=== PATIENT | female | born 1985 | race African-American/Black ===

== ENCOUNTER 2016-11-19 16:36 | Emergency (ER) | payer OTHER ==
[~2016-11-19] VITALS: Ht 157.5 cm; Wt 88.5 kg
[~2016-11-19 16:36] MED LIST: PREN1TAB49
[2016-11-19 16:38] VITALS: Ht 157.5 cm; Wt 88.5 kg
[2016-11-19] MEDS ORDERED: ONDANSETRON 4 MG INJ IV STA (17:46)
[2016-11-19] MEDS ORDERED: SOD CHLORIDE 0.9% 1,000 ML IV STA (17:46)
[2016-11-19] MEDS ORDERED: ACETAMINOPHEN 325 MG TAB PO STA (17:46)
[2016-11-19 18:08] LABS: URINE BLOOD (Dip) POC Negative (NEGATIVE)
[2016-11-19 18:39] LABS: ADD SCAN DIFF NO
[2016-11-19 18:43] LABS: BASOPHILS % 0.2 % (0.0-2.0); EOSINOPHILS # 0.1 10^3/ul (0.0-0.5); EOSINOPHILS % 0.9 % (0.0-7.0); HEMOGLOBIN 12.4 g/dl (12.0-16.0); LYMPHOCYTES # 1.9 10^3/ul (0.8-2.9); LYMPHOCYTES % 17.1 % (15.0-51.0); MEAN CORPUSCULAR HEMOGLOBIN 30.5 pg (29.0-33.0); MEAN CORPUSCULAR HGB CONC 33.5 g/dl (32.0-37.0); MEAN CORPUSCULAR VOLUME 91.1 fl (82.0-101.0); MEAN PLATELET VOLUME 9.3 fl (7.4-10.4); MONOCYTE # 0.6 10^3/ul (0.3-0.9); MONOCYTES % 5.3 % (0.0-11.0); NEUTROPHIL # 8.3 10^3/ul (1.6-7.5); NEUTROPHILS % 76.1 % (39.0-77.0); PLATELET COUNT 397 10^3/UL (140-415); RED BLOOD COUNT 4.06 10^6/ul (4.20-5.40); RED CELL DISTRIBUTION WIDTH 12.8 % (11.5-14.5); WHITE BLOOD COUNT 10.9 10^3/ul (4.8-10.8)
[2016-11-19 18:55] LABS: ALBUMIN 3.9 g/dl (3.3-4.9)
[2016-11-19 18:58] LABS: ALBUMIN/GLOBULIN RATIO 1.14; BILIRUBIN,INDIRECT 0.2 mg/dl (0-1.1); BILIRUBIN,TOTAL 0.2 mg/dl (0.2-1.3); CREATININE 0.57 mg/dl (0.44-1.00); TOTAL PROTEIN 7.3 g/dl (6.1-8.1)
[2016-11-19 18:59] LABS: CALCIUM 9.6 mg/dl (8.4-10.2)
--- NOTE | 2016-11-19 19:21 | RADRPT ---
PROCEDURE: Obstetrical ultrasound greater than 14 weeks CLINICAL INDICATION: Vomiting. Pelvic cramping. TECHNIQUE: Real time sonographic imaging of the gravid uterus is performed transabdominally and mu ltiple static beyer scale and Doppler images are submitted for review as are measurements. The image s are reviewed on the PACS. COMPARISON: No relevant exams are available FINDINGS: There are twin living intrauterine gestations Twin A is in transverse maternal left presentation. The heart beat is estimated at 161 bpm. The measurements are as follows: BPD:2.14 cm HC:7.56 cm AC:6.34 cm FL:1.00 cm Estimated gestational age is 13 weeks 1 day. The estimated date of delivery is 05/26/2017. The estimated weight is 68 grams. Placenta is posterior and grade 0. There is no evidence of placenta previa or abruption. Twin B is in a maternal right presentation. The heart beat is estimated at 161 bpm. The measurements are as follows: BPD:2.08 cm HC:7.47 cm AC:6.44 cm FL:0.98 cm Estimated gestational age is 13 weeks 1 day. The estimated date of delivery is 05/26/2017. The estimated weight is 68 grams. Placenta is anterior and grade 0. There is no evidence of placenta previa or abruption. The amniotic fluid this qualitatively normal. RPTAT:HJJR IMPRESSION: 1. Twin viable intrauterine gestations estimated at 13 weeks 1 day with the estimated date of delive ry 05/26/2017. 2. No evidence of placenta previa or abruption. Physician Brandi Date Time Electronically viewed and signed by Physician Brandi on 11/19/2016 19:20 /
[2016-11-19] MEDS ORDERED: ONDA4TAB8 PO (19:42)
[2016-11-19] MEDS ORDERED: FAMO-18 PO (20:00)
[2016-11-19] MEDS ORDERED: FAMOTIDINE 20 MG INJ IV ONE (20:00)
--- NOTE | 2016-11-19 20:09 | ERD ---
ER Documentation Chief Complaint Date/Time DATE: 11/19/16 TIME: 20:01 Chief Complaint 12 WEEKS WITH VOMITING HPI This is a 31-year-old female presenting to the emergency department for vomiting. Patient states she has had bloody emesis 4 times today. Patient states emesis appears dark red/brown. Patient also states she has acid reflux. Patient is currently 12 weeks with last menstrual period 08/20/2016. Patient is A1. Patient is also had intermittent pelvic cramping. No vaginal bleeding, vaginal discharge or vaginal itching. No diarrhea. No fevers or chills. 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 ROS All systems reviewed and are negative except as per history of present illness. Medications Home Meds Active Scripts Famotidine* (Pepcid*) 20 Mg Tablet, 20 MG PO BID for 4 Days, TAB Prov:ASHLEY MORALES NP 11/19/16 Ondansetron Hcl* (Zofran*) 4 Mg Tablet, 4 MG PO Q6H for NAUSEA AND/OR VOMITING, #10 TAB Prov:ASHLEY MORALES NP 11/19/16 Reported Medications Vits W-Ca,Fe,Fa(<1MG) () 1 Tab Tablet 05/06/12 Allergies Allergies: Coded Allergies: No Known Allergy (Unverified , 05/06/12) PMhx/Soc History of Surgery: No Anesthesia Reaction: No Hx Neurological Disorder: No Hx Respiratory Disorders: Yes (ASTHMA) Hx Cardiac Disorders: No Hx Psychiatric Problems: No Hx Miscellaneous Medical Probl: No Hx Alcohol Use: Yes Hx Substance Use: No Hx Tobacco Use: Yes Smoking Status: Never smoker Physical Exam Vitals Vital Signs Date Time Temp Pulse Resp B/P Pulse Ox O2 Delivery O2 Flow Rate FiO2 11/19/16 16:38 98.1 91 18 132/59 99 Physical Exam Const: No acute distress, alert Head: Atraumatic Eyes: Normal Conjunctiva ENT: Normal External Ears, Nose and Mouth. No erythema or exudate posterior pharynx. Neck: Full range of motion..~ No meningismus. Resp: Clear to auscultation bilaterally. No wheezing, rhonchi or crackles. Cardio: Regular rate and rhythm, no murmurs Abd: Soft, non tender, non distended. Normal bowel sounds Skin: No petechiae or rashes Back: No midline or flank tenderness Ext: No cyanosis, or edema Neur: Awake and alert Psych: Normal Mood and Affect Result Diagram: 11/19/16183111/19/161831 Results 24 hrs Laboratory Tests Test 11/19/16 18:07 11/19/16 18:32 Bedside Urine pH (LAB) 6.5 Bedside Urine Protein (LAB) 1+ Bedside Urine Glucose (UA) Negative Bedside Urine Ketones (LAB) 4+ Bedside Urine Blood Negative Bedside Urine Nitrite (LAB) Negative Bedside Urine Leukocyte Esterase (L Negative White Blood Count 10.910^3/ul Red Blood Count 4.0610^6/ul Hemoglobin 12.4g/dl Hematocrit 37.0% Mean Corpuscular Volume 91.1fl Mean Corpuscular Hemoglobin 30.5pg Mean Corpuscular Hemoglobin Concent 33.5g/dl Red Cell Distribution Width 12.8% Platelet Count 13074^3/UL Mean Platelet Volume 9.3fl Neutrophils % 76.1% Lymphocytes % 17.1% Monocytes % 5.3% Eosinophils % 0.9% Basophils % 0.2% Nucleated Red Blood Cells % 0.0/100WBC Neutrophils # 8.310^3/ul Lymphocytes # 1.910^3/ul Monocytes # 0.610^3/ul Eosinophils # 0.110^3/ul Basophils # 0.010^3/ul Nucleated Red Blood Cells # 0.010^3/ul Sodium Level 135mmol/L Potassium Level 4.0mmol/L Chloride Level 99mmol/L Carbon Dioxide Level 24mmol/L Anion Gap 16 Blood Urea Nitrogen 6mg/dl Creatinine 0.57mg/dl Glucose Level 95mg/dl Calcium Level 9.6mg/dl Total Bilirubin 0.2mg/dl Direct Bilirubin 0.00mg/dl Indirect Bilirubin 0.2mg/dl Aspartate Amino Transf (AST/SGOT) 23IU/L Alanine Aminotransferase (ALT/SGPT) 27IU/L Alkaline Phosphatase 100IU/L Total Protein 7.3g/dl Albumin 3.9g/dl Globulin 3.40g/dl Albumin/Globulin Ratio 1.14 Beta HCG, Quantitative 339025.0mIU/ml Current Medications Medications (Trade) Dose Ordered Sig/Karin Route PRN Reason Start Time Stop Time Status Last Admin Dose Admin Sodium Chloride (NS) 1,000 ml @ 1,000 mls/hr Q1H STAT IV 11/19/16 17:46 11/19/16 18:45 DC 11/19/16 18:37 Acetaminophen (Tylenol Tab) 650 mg ONCE STAT PO 11/19/16 17:46 11/19/16 17:49 DC 11/19/16 18:36 Ondansetron HCl (Zofran Inj) 4 mg ONCE STAT IV 11/19/16 17:46 11/19/16 17:49 DC 11/19/16 18:36 Famotidine (Pepcid Iv) 20 mg ONCE ONCE IV 11/19/16 20:00 11/19/16 20:01 DC Procedures/MDM ED COURSE: The patient was stable throughout ED course. I kept the patient and/or family informed of laboratory and diagnostic imaging results throughout the ED course. Tylenol and Zofran given Laboratory CBC White blood cell 10.9 otherwise unremarkable CMP no significant electrolyte imbalance Beta-hCG 169,080.0. Type and Rh factor Urine dip 4+ ketones, 1+ protein Imaging Patient: JEREMÍAS THORNTON : 1985 Age: 31 Sex: F MR #: [id number] DOS: 11/19/16 1746 Ordering MD: ASHLEY MORALES NP Location: [facility] Room/Bed: PROCEDURE: Obstetrical ultrasound greater than 14 weeks CLINICAL INDICATION: Vomiting. Pelvic cramping. TECHNIQUE: Real time sonographic imaging of the gravid uterus is performed transabdominally and multiple static beyer scale and Doppler images are submitted for review as are measurements. The images are reviewed on the PACS. COMPARISON: No relevant exams are available FINDINGS: There are twin living intrauterine gestations Twin A is in transverse maternal left presentation. The heart beat is estimated at 161 bpm. The measurements are as follows: BPD: 2.14 cm HC: 7.56 cm AC: 6.34 cm FL: 1.00 cm Estimated gestational age is 13 weeks 1 day. The estimated date of delivery is 05/26/2017. The estimated weight is 68 grams. Placenta is posterior and grade 0. There is no evidence of placenta previa or abruption. Twin B is in a maternal right presentation. The heart beat is estimated at 161 bpm. The measurements are as follows: BPD: 2.08 cm HC: 7.47 cm AC: 6.44 cm FL: 0.98 cm Estimated gestational age is 13 weeks 1 day. The estimated date of delivery is 05/26/2017. The estimated weight is 68 grams. Placenta is anterior and grade 0. There is no evidence of placenta previa or abruption. The amniotic fluid this qualitatively normal. RPTAT:HJJR IMPRESSION: 1. Twin viable intrauterine gestations estimated at 13 weeks 1 day with the estimated date of delivery 05/26/2017. 2. No evidence of placenta previa or abruption. MDM: This is a 31-year-old female presenting to the emergency department for vomiting while . Patient states she had 4 episodes of dark red/brown emesis that she believes was blood. No fevers or chills. Labs are unremarkable. No significant anemia. Patient given Tylenol and Zofran upon arrival to ED. No active vomiting on the ED. Patient also given 1 L fluid bolus of normal saline. Urine is negative for infection. OB ultrasound reviewed by radiologist shows twin viable intrauterine gestation estimated at 13 weeks 1 day with an estimated date of delivery 05/26/2017. No evidence of placenta previa or abruption. Patient states she is feeling better. Discussed findings with Dr. Cook. Dr.Dr. Cook suggested giving patient dose Pepcid 20 mg and to send patient home with 4 day dose of Pepcid. Instructed patient to return to ED if patient develops any vomiting, high fever, vaginal bleeding, abdominal pain, pelvic pain or any new or worsening symptoms. Patient verbalized understanding. All questions answered at discharge. Differential diagnosis includes but not limited to peptic ulcer disease, viral gastroenteritis, gastritis, GERD, cholelithiasis, urinary tract infection or abdominal pain not otherwise specified. Low suspicion for cholecystitis , spontaneous , ovarian torsion, tubo- ovarian abscess or other emergent etiologies. Patient was discharged with prescription for Pepcid 20 mg. Departure Diagnosis: Primary Impression: Vomiting Vomiting type: unspecified Vomiting Intractability: non-intractable Nausea presence: with nausea Qualified Code: R11.2 - Non-intractable vomiting with nausea, unspecified vomiting type Additional Impression: Weeks of gestation: 12 weeks Qualified Code: Z3A.12 - 12 weeks gestation of Condition: Stable Patient Instructions: Abdominal Pain, Early , Vomiting (6Y-Adult) Referrals: [facility] YOU HAVE RECEIVED A MEDICAL SCREENING EXAM AND THE RESULTS INDICATE THAT YOU DO NOT HAVE A CONDITION THAT REQUIRES URGENT TREATMENT IN THE EMERGENCY DEPARTMENT. FURTHER EVALUATION AND TREATMENT OF YOUR CONDITION CAN WAIT UNTIL YOU ARE SEEN IN YOUR DOCTORS OFFICE WITHIN THE NEXT 1-2 DAYS. IT IS YOUR RESPONSIBILITY TO MAKE AN APPOINTMENT FOR FOLOW-UP CARE. IF YOU HAVE A PRIMARY DOCTOR --you should call your primary doctor and schedule an appointment IF YOU DO NOT HAVE A PRIMARY DOCTOR YOU CAN CALL OUR PHYSICIAN REFERRAL HOTLINE AT IF YOU CAN NOT AFFORD TO SEE A PHYSICIAN YOU CAN CHOSE FROM THE FOLLOWING [facility] [address] [facility] [address]. [facility] [address] [facility]. [facility] [address] [facility] [facility] [address] [facility] [facility] [address] [facility]. [facility] [address] [facility]. [facility] YOU HAVE RECEIVED A MEDICAL SCREENING EXAM AND THE RESULTS INDICATE THAT YOU DO NOT HAVE A CONDITION THAT REQUIRES URGENT TREATMENT IN THE EMERGENCY DEPARTMENT. FURTHER EVALUATION AND TREATMENT OF YOUR CONDITION CAN WAIT UNTIL YOU ARE SEEN IN YOUR DOCTORS OFFICE WITHIN THE NEXT 1-2 DAYS. IT IS YOUR RESPONSIBILITY TO MAKE AN APPOINTMENT FOR FOLOW-UP CARE. IF YOU HAVE A PRIMARY DOCTOR --you should call your primary doctor and schedule and appointment IF YOU DO NOT HAVE A PRIMARY DOCTOR YOU CAN CALL OUR PHYSICIAN REFERRAL HOTLINE AT . IF YOU CAN NOT AFFORD TO SEE A PHYSICIAN YOU CAN CHOSE FROM THE FOLLOWING [facility]: [facility] [address] [place] [address] [facility] [address] [place] [address] FORMERLY [facility] [address] [place] [address] [employer] [place] [address] [facility] [address] [place] [address] OFFICE FAX [facility] [address] [place] [address] [address] CRUZ MARY [address] [place] [address] [address] [facility] [address], [place] [address] [address] [facility] [address] [address] [facility] [place] [address] [facility] [address] [place] [address] [address] [facility] [address] [address] DUKES TOM [address] [facility]. [address] [address] DR HELMS, MARLE[place] [address] [facility]. [address], [place] [address] DR CERVANTES [facility] [address] [place] [address] Additional Instructions: Return to ED in 8 hours for reassessment of abdominal pain and vomiting for any high fever, chest pain, difficulty breathing, shortness breath, wheezing, vomiting, diarrhea, abdominal pain or any new or worsening symptoms. Follow-up with TOOL DESIGNER APPRENTICE at next scheduled appointment. ASHLEY MORALES NP Nov 19, 2016 20:09
[2016-11-19 20:17] VITALS: BP 109/71; PULSE 82; RESP 20
== END 2016-11-19 20:17 | disposition home or self-care (01) ==
LOC: FTE 16:36
DX: O21.9 Vomiting of pregnancy, unspecified (principal); O99.511 Diseases of the respiratory system complicating pregnancy, first trimester; J45.909 Unspecified asthma, uncomplicated; Z87.891 Personal history of nicotine dependence; Z3A.13 13 weeks gestation of pregnancy
CPT/HCPCS: 36415; 76801; 80053; 81003; 84702; 85025; 86900; 86901; 96361; 96374; 96375; J2405; J7030; Z7502; Z7610